=== PATIENT | male | born 1950 | race Caucasian/White ===

== ENCOUNTER 2017-04-30 15:19 | Emergency (ER) | payer OTHER, MEDICAID ==
[~2017-04-30] VITALS: Ht 147.3 cm; Wt 53.7 kg
[~2017-04-30 15:19] MED LIST: ACET-7568 GT; ALUM-32 GT; ATRN INH; BISA10SU61 RC; BUDE1AER IH; DICL18CA GT; IBUP-1842 GT; LAM200 GT; LANS30EC3 GT; LEVA1.2530 INH; LIDO5TDM45 TP; MAGN400S60 GT; MELO7.5T11 GT; PARO30TA22 GT; POLY15SO48 OP; POLY17PD65 GT; RISP0.251 GT; SENN-72 GT; TRAM50TA94 GT; [UNRECOGNIZED DRUG - CODE] PO
[2017-04-30 15:23] VITALS: BP 117/89
--- NOTE | 2017-04-30 15:40 | NUR ---
Patient to bed 5.
--- NOTE | 2017-04-30 15:51 | NUR ---
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 HX: COPD, ASTHMA, PNA, CARDIAC ARREST, RESP ARREST, ARTHRITIS. DENIES N/V/D; SKIN IS PINK/WARM/DRY; AAOX4 WITH EVEN AND STEADY GAIT; LUNGS CLEAR BL; HR EVEN AND REGULAR; PT DENIES ANY FEVER, CP, SOB, OR COUGH AT THIS TIME; PATIENT STATES PAIN OF 0/10 AT THIS TIME; VSS; PATIENT POSITIONED FOR COMFORT; HOB ELEVATED; BEDRAILS UP X2; BED DOWN. ER MD MADE AWARE OF PT STATUS.
--- NOTE | 2017-04-30 15:52 | NUR ---
KARSON ABDALLA EVALUATING PT AT BEDSIDE. Addendum: 04/30/17 at 1757 by [facility] DIRECTOR OF STRATEGIC ALLIANCES AT BEDSIDE.
--- NOTE | 2017-04-30 17:11 | NUR ---
Harley soares in ED - 04/30/17 at 1712 by MED1 Renae NANCE REPLACEMENT DONE BY KARSON ABDALLA. PT TOLERATED PROCEDURE WELL.
--- NOTE | 2017-04-30 17:12 | NUR ---
Dr. Mckinney at bedside for g-tube replacement. Old g-tube removed. 18 Fr g-tube inserted by Dr. Mckinney. Pt tolerated well. Drain sponge applied.
--- NOTE | 2017-04-30 17:12 | NUR ---
Harley soares in EDM - 04/30/17 at 1722 by MED1 G TUBE REPLACEMENT DONE BY KARSON ABDALLA. PT TOLERATED PROCEDURE WELL.
--- NOTE | 2017-04-30 17:25 | NUR ---
X RAY AT BEDSIDE.
--- NOTE | 2017-04-30 17:40 | NUR ---
Patient appears to be resting comfortably in bed. Vital Signs within normal limits. Respirations even and unlabored.WILL CONTINUE TO MONITOR.
[2017-04-30 18:17] VITALS: BP 119/78
--- NOTE | 2017-04-30 18:18 | NUR ---
Patient discharged with v/s stable. Written and verbal after care instructions given and explained. Patient verbalized understanding. Wheel Chair Assisted with to car. All questions addressed prior to discharge. Advised to follow up with PMD.
== END 2017-04-30 18:18 | disposition home or self-care (01) ==
LOC: MED 15:19
DX: K94.23 Gastrostomy malfunction (principal); J44.9 Chronic obstructive pulmonary disease, unspecified; Z86.73 Personal history of transient ischemic attack (TIA), and cerebral infarction without residual deficits
CPT/HCPCS: 43760; 74241; 99284; C1758; Q0092; 49450